=== PATIENT | female | born 1965 | race Caucasian/White ===

== ENCOUNTER → 2016-11-27 | Outpatient (CLI) | payer OTHER ==
--- NOTE | 2016-11-27 17:49 | DIAGNOSTIC IMAGING REPORT ---
PROCEDURE: XR ABDOMEN 1 VIEW INDICATION: KIDNEY STONES TECHNIQUE: AP supine and upright views. COMPARISON: Abdominal CT 10/27/2014 FINDINGS: Bowel pattern is normal. Soft tissues and osseous structures are normal. 3 cm calcified gallstone that was present on the abdominal CT 04/2015 IMPRESSION: 1. 3 cm gallstone
== END ==
LOC: XR SRH 17:02
DX: K80.80 Other cholelithiasis without obstruction (principal)

== ENCOUNTER 2016-11-29 19:51 | Emergency (ER) | payer OTHER ==
--- NOTE | 2016-11-29 21:54 | ED ORDER SUMMARY ---
..... Patient: SADIE ROMERO OrderSheet [facility] VisitID: [id number] [address] [address] 50y, F Registration Date/Time: 11/29/2016 ORDER SHEET Weight: 99.2 kg (stated) Allergies: Amoxicillin GENERAL ORDERS: CBC w Diff Urgent (20:17 11/29/2016 EKoroleva P.A.-C) (Ack 20:19 CHagerty ER Catalog Specialist) (20:39 DDean R.N.) CMP Urgent (20:17 11/29/2016 EKoroleva P.A.-C) (Ack 20:19 CHagerty ER Catalog Specialist) (20:39 DDean R.N.) UA-Culture if indicated Urgent (20:17 11/29/2016 EKoroleva P.A.-C) (Ack 20:19 CHagerty ER Catalog Specialist) (20:25 ALawrence ER Tech1) Lipase Urgent (20:17 11/29/2016 EKoroleva P.A.-C) (Ack 20:19 CHagerty ER Catalog Specialist) (20:40 DDean R.N.) Amylase Urgent (20:17 11/29/2016 EKoroleva P.A.-C) (Ack 20:19 CHagerty ER Catalog Specialist) (20:40 DDean R.N.) PCT (Procalcitonin) Urgent (21:28 11/29/2016 EKoroleva P.A.-C) (21:33 CHagerty ER Catalog Specialist) MEDICATION ORDERS: IV FLUIDS: IV Saline Lock (20:17 11/29/2016 EKoroleva P.A.-C) (20:39 DDean R.N.) ORDER SHEET NOTES: [Electronically signed by Lara Vences R.N. (22:00 11/29/2016)] [Electronically signed by Gissel Polanco PWilliamA.-C (23:07 11/29/2016)] [Electronically locked/signed by Lara Vences R.N. (22:00 11/29/2016)]
--- NOTE | 2016-11-29 21:54 | ED NURSING NOTES ---
Clinical Report - Nurses [facility] [address] [place] [address] 11/29/2016 19:52 Patient: SADIE ROMERO TRIAGE Triage time 1999. Acuity: LEVEL 3. Chief Complaint: PAINFUL URINATION and (Pt has frequent UTI's and has a kidney stone dx last week at [facility]. pt states that she finished antibiotics last week, and it is getting worse again). --20:11 Lara Vences R.N. 20:00 11/29/16. BP: 163/79. HR: 81. RR: 18. O2 saturation: 98%. Temp: 98.1 F. Pain level now: 01/11. --20:11 Lara Vences R.N. Weight: 99.2 kg stated. Height/Length: 61 inches Per Patient. BMI: 41.3. --20:08 Lara Vences R.N. Medications Just finished antibiotic last wek for UTI. --20:07 Lara Vences R.N. naturopathic med for menopause . --20:11 Lara Vences R.N. Allergies Amoxicillin. --20:06 Lara Vences R.N. History Arrived by private vehicle. Historian: patient. Accompanied by friend. Primary physician (faiza). The patient has had abdominal pain (feeling bloating/pain). ( also states she has 1 large kidney stone). SOCIAL HX: Former smoker. No alcohol use or drug use. --20:11 Lara Vences R.N. PROBLEMS: Pyelonephritis. Gallbladder Disease. Vulvovaginitis. Pelvic Inflammatory Disease. STD - Sexually Transmitted Disease. Vaginal Discharge. UTI - Urinary Tract Infection. Hypertension. --20:04 Lara Vences R.N. Interventions ID band on patient. To treatment room. --20:11 Lara Vences R.N. PHYSICAL ASSESSMENT 20:00. Patient gowned. GENERAL / NEURO / PSYCH: Alert. Oriented X 4. Appears anxious. RESPIRATORY: Respirations not labored. CVS: Capillary refill less than 2 seconds. GI / : Abdominal distention. SKIN: Skin is warm and dry. --20:11 Lara Vences R.N. NURSING PROGRESS NOTES 20:00. Patient gowned. Head of bed elevated. Reassurance given. Patient identifiers checked. Call light placed in reach. Side rails up. Bed placed in lowest position. Patient ready for evaluation- chart flagged. --20:10 Lara Vences R.N. 20:12 11/29/16. Patient ID band checked for patient name and birthdate. Clean catch urine collected with return of yellow-colored clear urine; sample sent to lab for urinalysis and culture. Specimen labeled in the presence of the patient. --20:12 Lara Vences R.N. 20:25 11/29/2016 Site #1 started via IV in the right hand with an 24g angiocath, with aseptic technique and good blood return; one attempt. Blood drawn: rainbow set. Labeled in the presence of the patient and sent to the lab. Saline lock flushed with 10 mL saline. --20:39 Lara Vences R.N. 20:30. ( Saline lock started, blood to lab. Pt ambulated to bathroom again.). --20:40 Lara Vences R.N. 21:00 11/29/16. BP: 158/70. HR: 80. RR: 18. O2 saturation: 99%. Temp: deferred. Pain level now: 7/10. Additional comments: Pt resting quietly, waiting for lab results . --21:14 Lara Vences R.N. 21:50 11/29/2016 Site #1 removed upon discharge. Bandaid applied. --21:59 Lara Vences R.N. 21:50 11/29/2016 IV Saline Lock Drip IV Discontinued: upon discharge. Total amount infused: 0 mL. IV patency established. IV site checked: no pain, redness, or swelling. IV flushed thoroughly. --22:00 Lara Vneces R.N. DISPOSITION / DISCHARGE 22:00. Condition at departure: stable. No learning barriers present. Discharge instructions provided and reviewed with the patient and spouse. Reviewed medication(s) (vicodin, pepcid). Patient and spouse verbalized understanding. Written instructions provided in [place]. The patient was discharged home and accompanied by spouse. She left the Emergency Department ambulatory and via private vehicle. Spouse driving. --21:59 Lara Vences R.N. 21:58 11/29/16. BP: 160/80. HR: 84. RR: 18. O2 saturation: 99%. Temp: deferred. Pain level now: 01/11. --21:59 Lara Vences R.N. Locked/Released at 11/29/2016 22:00 by Lara Vences R.N.
--- NOTE | 2016-11-29 21:54 | ED CLINICAL REPORT ---
Clinical Report - Physicians/Mid Levels [facility] [address] [place] [address] 11/29/2016 19:52 [id number] Time Seen: 20:22 Nov 29 2016. Arrived- By private vehicle. Historian- patient. HISTORY OF PRESENT ILLNESS Chief Complaint: FLANK PAIN. It is described as located in the right flank, the right abdomen and left abdomen and the left flank and in the periumbilical area. 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 The patient has had nausea. No loss of appetite, vomiting or diarrhea. (patient reports over the last few weeks has had off-and-on bilateral flank pain. SHe was recently seen at [facility], and diagnosed with a bladder infection, finishing antibiotics 4 days previously. Patient believes she has a kidney stone, is awaiting for referral. Denies fevers. Denies any emesis or diarrhea.). REVIEW OF SYSTEMS No constipation, difficulty with urination, pain with urination, fever or chest pain. No difficulty breathing, cough or chills. All systems otherwise negative, except as recorded above. PAST HISTORY Problems: Pyelonephritis. Gallbladder Disease. Vulvovaginitis. Pelvic Inflammatory Disease. STD - Sexually Transmitted Disease. Vaginal Discharge. UTI - Urinary Tract Infection. LNMP - Last Normal Menstrual Period. Hypertension. Tendon Laceration. Laceration. Tetanus Status. Medications: naturopathic med for menopause . Just finished antibiotic last wek for UTI. Allergies: Amoxicillin. SOCIAL HISTORY Former smoker. No alcohol use or drug use. ADDITIONAL NOTES The nursing notes have been reviewed. PHYSICAL EXAM Vital Signs: 11/29/2016 20:00 BP: 163/79. HR: 81. RR: 18. O2 saturation: 98%. Temp: 98.1 F. Pain level now: 7/10. Appearance: Alert. No apparent distress. Does not appear to be anxious. ENT: Nose normal. Pharynx normal. Neck: Normal inspection. CVS: Normal heart rate and rhythm. Heart sounds normal. Respiratory: No respiratory distress. Breath sounds normal. No decreased air movement. Abdomen: Soft. Moderate tenderness. No organomegaly. No mass. No rebound tenderness, distention, mass present, femoral pulse deficit or guarding. The bowel sounds are not abnormal. Back: Normal inspection. Skin: Skin cool. Normal skin color. Neuro: Oriented X 3. LABS, X-RAYS, AND EKG Laboratory Tests: UA-Culture if indicated: (CONY: 11/29/2016 20:03) ( [facility] [place] 21:02[place] Final results Test Result Flag Units (Reference) URINE COLOR STRAW URINE APPEARANCE CLEAR URINE GLUCOSE NEGATIVE (NEGATIVE) URINE BILIRUBIN NEGATIVE (NEGATIVE) URINE KETONE NEGATIVE (NEGATIVE) URINE SPECIFIC GRAVITY <= 1.005 L (1.010-1.030) URINE PH 6.5 (5.0-8.0) URINE PROTEIN NEGATIVE (NEGATIVE) URINE UROBILINOGEN 0.2 EU/dL (0.2-1.0) URINE NITRITE NEGATIVE (NEGATIVE) URINE BLOOD NEGATIVE (NEGATIVE) URINE LEUK ESTERASE NEGATIVE (NEGATIVE) URINE RBC NONE SEEN rbc/hpf (0-1) URINE WBC 0-1 wbc/hpf (0-1) URINE EPITHELIAL CELLS 0-1 EPI/hpf (0-5) URINE BACTERIA NONE SEEN (NONE SEEN) URINE COMMENT CULT NOT INDICATED URINE CULTURES ARE SET-UP BASED ON THE FOLLOWING CRITERIA:POSITIVE NITRITEPOSITIVE LEUKOCYTE ESTERASEGREATER THAN 10 WHITE BLOOD CELLSMODERATE (2+) OR GREATER BACTERIA CBC w Diff: (CONY: 11/29/2016 20:25) ( [facility] [place]2016 20:49) Final results Test Result Flag Units (Reference) WHITE BLOOD COUNT 8.3 K/uL (4.5-11.5) RED BLOOD COUNT 4.39 M/uL (4.00-5.20) HEMOGLOBIN 13.2 gm/dL (12.0-16.0) HEMATOCRIT 38.0 % (36.0-46.0) MEAN CELL VOLUME 87 fL (80-100) MEAN CORPUSCULAR HGB 30 pg (26-34) MEAN CORPUSCULAR HGB CONC 35 g/dL (31-37) RED CELL DISTRIBUTION WIDTH 12.2 % (11.6-14.8) PLATELET COUNT 259 K/uL (150-400) NEUTROPHIL % 65.4 % (50-75) LYMPH % 22.4 L % (25-40) MONO % 8.5 % (3-14) EOSINOPHIL % 3.2 % (0-4) BASOPHIL % 0.5 % (0-2) [id number]: (CONY: 11/29/2016 20:25) ( MsgRcvd 11/29/2016 22:03) Final results Test Result Flag Units (Reference) PROCALCITONIN <0.5 ng/mL (0-0.5) PCT Concentration: Interpretation : Risk/option for action PCT <=0.5 ng/mL : Systemic : Low risk forinfection(sepsis): progression to severeis not likely. : systemic infection.Local bacterial : CAUTION-PCT levelsinfection is : below 0.5 ng/mL do notpossible. : exclude an infection,because localizedinfections (withoutsystemic signs) may beassociated with suchlow levels. If PCT ismeasured very earlyafter a bacterialchallenge (usually <6hours), these valuesmay still be low. Inthis case PCT shouldbe re-assessed 6-24hours later. PCT >0.5 and : Systemic infection: Moderate risk for<= 2 ng/mL : (sepsis) is : progression to severepossible, but : systemic infection.other conditions : The patient should beare known to : closely monitoredelevate PCT. : both clinically andby re-assessing PCTwithin 6-24 hours. PCT > 2 ng/mL : Systemic infection: High risk for(sepsis) is likely: progression to severeunless other : systemic infection.causes are known. : PCT >= 10 ng/mL : Important systemic: High likelihood ofinflammatory : severe sepsis orresponse, almost : septic shock.exclusively due to:severe bacterial :sepsis or septic :shock. : CMP: (CONY: 11/29/2016 20:25) ( MsgRcvd 11/29/2016 21:07) Final results Test Result Flag Units (Reference) GLUCOSE 126 H mg/dL (70-110) BUN 7 mg/dL (7-18) CREATININE 0.7 mg/dL (0.6-1.3) Estimated GFR >60 mL/min Estimated GFR- >60 mL/min Note: Persistent reduction over 3 months in eGFR<60 mL/min/1.73 m2 defines CKD. Patients with eGFR values>=60 mL/min/1.73 m2 may also have CKD if evidence ofpersistent proteinuria. Additional information may be foundat www.kidney.org. SODIUM 133 L mmol/L (136-145) POTASSIUM 3.6 mmol/L (3.5-5.1) CHLORIDE 96 L mmol/L (98-107) CARBON DIOXIDE 27 mmol/L (21-32) CALCIUM 8.8 mg/dL (8.5-10.1) TOTAL PROTEIN 7.5 g/dL (6.4-8.2) ALBUMIN 3.5 g/dL (3.3-5.0) BILIRUBIN, TOTAL 0.5 mg/dL (0.0-1.0) ALKALINE PHOSPHATASE 86 U/L (46-116) AST (SGOT) 24 U/L (15-37) ALT (SGPT) 53 U/L (12-78) LIPASE 136 U/L (73-393) AMYLASE 37 U/L (25-115) . PROGRESS AND PROCEDURES Course of Care: Pre- hypertension/Hypertension: I discussed with the patient that they may have pre-hypertension or Hypertension based on a blood pressure reading in the emergency department. I have recommended to the patient that they call the primary care provider listed on their discharge instructions or their own within a week to arrange follow up for further evaluation of possible pre-hypertension or Hypertension. Abd: During the time in the ED, the following DDX were considered: acute surgical abdomen, hemodynamic or metabolic instability, dehydration, gastroenteritis-viral, food borne, or bacterial, food intolerance, irritable or inflammatory bowel, infection, sepsis. Pre- hypertension/Hypertension: I discussed with the patient that they may have pre-hypertension or Hypertension based on a blood pressure reading in the emergency department. I have recommended to the patient that they call the primary care provider listed on their discharge instructions or their own within a week to arrange follow up for further evaluation of possible pre-hypertension or Hypertension. Abd: During the time in the ED, the following DDX were considered: acute surgical abdomen, hemodynamic or metabolic instability, dehydration, gastroenteritis-viral, food borne, or bacterial, food intolerance, irritable or inflammatory bowel, infection, sepsis. 11/29/2016 21:58 BP: 160/80. HR: 84. RR: 18. O2 saturation: 99%. Pain level now: 7/10. Patient is stable. Symptoms better. Patient/family counseled. Disposition: Discharged. CLINICAL IMPRESSION Acute generalized and epigastric abdominal pain of unknown cause. INSTRUCTIONS Drink plenty of fluids. Prescription Medications: Hydrocodone/APAP 5mg / 325mg: take 1 orally every 6 hours as needed for pain. Dispense ten (10). No refill. Pepcid 20 mg: take 1 orally every 12 hours for 5 days. Dispense ten (10). No refills. Substitution is permissible. Follow-up: Follow up with your doctor in three days. Understanding of the discharge instructions verbalized by patient. (Electronically signed by Gissel Polanco P.A.-C 11/29/2016 23:07)
--- NOTE | 2016-11-29 21:54 | ED CLINICAL REPORT ---
Clinical Report - Physicians/Mid Levels [facility] [address] [place] [address] 11/29/2016 19:52 [id number] Time Seen: 20:22 Nov 29 2016. Arrived- By private vehicle. Historian- patient. HISTORY OF PRESENT ILLNESS Chief Complaint: FLANK PAIN. It is described as located in the right flank, the right abdomen and left abdomen and the left flank and in the periumbilical area. 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 The patient has had nausea. No loss of appetite, vomiting or diarrhea. (patient reports over the last few weeks has had off-and-on bilateral flank pain. SHe was recently seen at [facility], and diagnosed with a bladder infection, finishing antibiotics 4 days previously. Patient believes she has a kidney stone, is awaiting for referral. Denies fevers. Denies any emesis or diarrhea.). REVIEW OF SYSTEMS No constipation, difficulty with urination, pain with urination, fever or chest pain. No difficulty breathing, cough or chills. All systems otherwise negative, except as recorded above. PAST HISTORY Problems: Pyelonephritis. Gallbladder Disease. Vulvovaginitis. Pelvic Inflammatory Disease. STD - Sexually Transmitted Disease. Vaginal Discharge. UTI - Urinary Tract Infection. LNMP - Last Normal Menstrual Period. Hypertension. Tendon Laceration. Laceration. Tetanus Status. Medications: naturopathic med for menopause . Just finished antibiotic last wek for UTI. Allergies: Amoxicillin. SOCIAL HISTORY Former smoker. No alcohol use or drug use. ADDITIONAL NOTES The nursing notes have been reviewed. PHYSICAL EXAM Vital Signs: 11/29/2016 20:00 BP: 163/79. HR: 81. RR: 18. O2 saturation: 98%. Temp: 98.1 F. Pain level now: 7/10. Appearance: Alert. No apparent distress. Does not appear to be anxious. ENT: Nose normal. Pharynx normal. Neck: Normal inspection. CVS: Normal heart rate and rhythm. Heart sounds normal. Respiratory: No respiratory distress. Breath sounds normal. No decreased air movement. Abdomen: Soft. Moderate tenderness. No organomegaly. No mass. No rebound tenderness, distention, mass present, femoral pulse deficit or guarding. The bowel sounds are not abnormal. Back: Normal inspection. Skin: Skin cool. Normal skin color. Neuro: Oriented X 3. LABS, X-RAYS, AND EKG Laboratory Tests: UA-Culture if indicated: (CONY: 11/29/2016 20:03) ( [facility] [place] [place] 21:02) Final results Test Result Flag Units (Reference) URINE COLOR STRAW URINE APPEARANCE CLEAR URINE GLUCOSE NEGATIVE (NEGATIVE) URINE BILIRUBIN NEGATIVE (NEGATIVE) URINE KETONE NEGATIVE (NEGATIVE) URINE SPECIFIC GRAVITY <= 1.005 L (1.010-1.030) URINE PH 6.5 (5.0-8.0) URINE PROTEIN NEGATIVE (NEGATIVE) URINE UROBILINOGEN 0.2 EU/dL (0.2-1.0) URINE NITRITE NEGATIVE (NEGATIVE) URINE BLOOD NEGATIVE (NEGATIVE) URINE LEUK ESTERASE NEGATIVE (NEGATIVE) URINE RBC NONE SEEN rbc/hpf (0-1) URINE WBC 0-1 wbc/hpf (0-1) URINE EPITHELIAL CELLS 0-1 EPI/hpf (0-5) URINE BACTERIA NONE SEEN (NONE SEEN) URINE COMMENT CULT NOT INDICATED URINE CULTURES ARE SET-UP BASED ON THE FOLLOWING CRITERIA:POSITIVE NITRITEPOSITIVE LEUKOCYTE ESTERASEGREATER THAN 10 WHITE BLOOD CELLSMODERATE (2+) OR GREATER BACTERIA CBC w Diff: (CONY: 11/29/2016 20:25) ( [facility] [place] 11/29/2016 20:49) Final results Test Result Flag Units (Reference) WHITE BLOOD COUNT 8.3 K/uL (4.5-11.5) RED BLOOD COUNT 4.39 M/uL (4.00-5.20) HEMOGLOBIN 13.2 gm/dL (12.0-16.0) HEMATOCRIT 38.0 % (36.0-46.0) MEAN CELL VOLUME 87 fL (80-100) MEAN CORPUSCULAR HGB 30 pg (26-34) MEAN CORPUSCULAR HGB CONC 35 g/dL (31-37) RED CELL DISTRIBUTION WIDTH 12.2 % (11.6-14.8) PLATELET COUNT 259 K/uL (150-400) NEUTROPHIL % 65.4 % (50-75) LYMPH % 22.4 L % (25-40) MONO % 8.5 % (3-14) EOSINOPHIL % 3.2 % (0-4) BASOPHIL % 0.5 % (0-2) [id number]: (CONY: 11/29/2016 20:25) ( MsgRcvd 11/29/2016 22:03) Final results Test Result Flag Units (Reference) PROCALCITONIN <0.5 ng/mL (0-0.5) PCT Concentration: Interpretation : Risk/option for action PCT <=0.5 ng/mL : Systemic : Low risk forinfection(sepsis): progression to severeis not likely. : systemic infection.Local bacterial : CAUTION-PCT levelsinfection is : below 0.5 ng/mL do notpossible. : exclude an infection,because localizedinfections (withoutsystemic signs) may beassociated with suchlow levels. If PCT ismeasured very earlyafter a bacterialchallenge (usually <6hours), these valuesmay still be low. Inthis case PCT shouldbe re-assessed 6-24hours later. PCT >0.5 and : Systemic infection: Moderate risk for<= 2 ng/mL : (sepsis) is : progression to severepossible, but : systemic infection.other conditions : The patient should beare known to : closely monitoredelevate PCT. : both clinically andby re-assessing PCTwithin 6-24 hours. PCT > 2 ng/mL : Systemic infection: High risk for(sepsis) is likely: progression to severeunless other : systemic infection.causes are known. : PCT >= 10 ng/mL : Important systemic: High likelihood ofinflammatory : severe sepsis orresponse, almost : septic shock.exclusively due to:severe bacterial :sepsis or septic :shock. : CMP: (CONY: 11/29/2016 20:25) ( MsgRcvd 11/29/2016 21:07) Final results Test Result Flag Units (Reference) GLUCOSE 126 H mg/dL (70-110) BUN 7 mg/dL (7-18) CREATININE 0.7 mg/dL (0.6-1.3) Estimated GFR >60 mL/min Estimated GFR- >60 mL/min Note: Persistent reduction over 3 months in eGFR<60 mL/min/1.73 m2 defines CKD. Patients with eGFR values>=60 mL/min/1.73 m2 may also have CKD if evidence ofpersistent proteinuria. Additional information may be foundat www.kidney.org. SODIUM 133 L mmol/L (136-145) POTASSIUM 3.6 mmol/L (3.5-5.1) CHLORIDE 96 L mmol/L (98-107) CARBON DIOXIDE 27 mmol/L (21-32) CALCIUM 8.8 mg/dL (8.5-10.1) TOTAL PROTEIN 7.5 g/dL (6.4-8.2) ALBUMIN 3.5 g/dL (3.3-5.0) BILIRUBIN, TOTAL 0.5 mg/dL (0.0-1.0) ALKALINE PHOSPHATASE 86 U/L (46-116) AST (SGOT) 24 U/L (15-37) ALT (SGPT) 53 U/L (12-78) LIPASE 136 U/L (73-393) AMYLASE 37 U/L (25-115) . PROGRESS AND PROCEDURES Course of Care: Pre- hypertension/Hypertension: I discussed with the patient that they may have pre-hypertension or Hypertension based on a blood pressure reading in the emergency department. I have recommended to the patient that they call the primary care provider listed on their discharge instructions or their own within a week to arrange follow up for further evaluation of possible pre-hypertension or Hypertension. Abd: During the time in the ED, the following DDX were considered: acute surgical abdomen, hemodynamic or metabolic instability, dehydration, gastroenteritis-viral, food borne, or bacterial, food intolerance, irritable or inflammatory bowel, infection, sepsis. Pre- hypertension/Hypertension: I discussed with the patient that they may have pre-hypertension or Hypertension based on a blood pressure reading in the emergency department. I have recommended to the patient that they call the primary care provider listed on their discharge instructions or their own within a week to arrange follow up for further evaluation of possible pre-hypertension or Hypertension. Abd: During the time in the ED, the following DDX were considered: acute surgical abdomen, hemodynamic or metabolic instability, dehydration, gastroenteritis-viral, food borne, or bacterial, food intolerance, irritable or inflammatory bowel, infection, sepsis. 11/29/2016 21:58 BP: 160/80. HR: 84. RR: 18. O2 saturation: 99%. Pain level now: 7/10. Patient is stable. Symptoms better. Patient/family counseled. Disposition: Discharged. CLINICAL IMPRESSION Acute generalized and epigastric abdominal pain of unknown cause. INSTRUCTIONS Drink plenty of fluids. Prescription Medications: Hydrocodone/APAP 5mg / 325mg: take 1 orally every 6 hours as needed for pain. Dispense ten (10). No refill. Pepcid 20 mg: take 1 orally every 12 hours for 5 days. Dispense ten (10). No refills. Substitution is permissible. Follow-up: Follow up with your doctor in three days. Understanding of the discharge instructions verbalized by patient. (Electronically signed by Gsisel Polanco P.A.-C 11/29/2016 23:07)
--- NOTE | 2016-11-29 21:54 | ED NURSING NOTES ---
Clinical Report - Nurses [facility] [address] [place] [address] 11/29/2016 19:52 Patient: SADIE ROMERO TRIAGE Triage time 1999. Acuity: LEVEL 3. Chief Complaint: PAINFUL URINATION and (Pt has frequent UTI's and has a kidney stone dx last week at [facility]. pt states that she finished antibiotics last week, and it is getting worse again). --20:11 Lara Vences R.N. 20:00 11/29/16. BP: 163/79. HR: 81. RR: 18. O2 saturation: 98%. Temp: 98.1 F. Pain level now: 01/11. --20:11 Lara Vences R.N. Weight: 99.2 kg stated. Height/Length: 61 inches Per Patient. BMI: 41.3. --20:08 Lara Vences R.N. Medications Just finished antibiotic last wek for UTI. --20:07 Lara Vences R.N. naturopathic med for menopause . --20:11 Lara Vences R.N. Allergies Amoxicillin. --20:06 Lara Vences R.N. History Arrived by private vehicle. Historian: patient. Accompanied by friend. Primary physician (faiza). The patient has had abdominal pain (feeling bloating/pain). ( also states she has 1 large kidney stone). SOCIAL HX: Former smoker. No alcohol use or drug use. --20:11 Lara Vences R.N. PROBLEMS: Pyelonephritis. Gallbladder Disease. Vulvovaginitis. Pelvic Inflammatory Disease. STD - Sexually Transmitted Disease. Vaginal Discharge. UTI - Urinary Tract Infection. Hypertension. --20:04 Lara Vences R.N. Interventions ID band on patient. To treatment room. --20:11 Lara Vences R.N. PHYSICAL ASSESSMENT 20:00. Patient gowned. GENERAL / NEURO / PSYCH: Alert. Oriented X 4. Appears anxious. RESPIRATORY: Respirations not labored. CVS: Capillary refill less than 2 seconds. GI / : Abdominal distention. SKIN: Skin is warm and dry. --20:11 Lara Vences R.N. NURSING PROGRESS NOTES 20:00. Patient gowned. Head of bed elevated. Reassurance given. Patient identifiers checked. Call light placed in reach. Side rails up. Bed placed in lowest position. Patient ready for evaluation- chart flagged. --20:10 Lara Vences R.N. 20:12 11/29/16. Patient ID band checked for patient name and birthdate. Clean catch urine collected with return of yellow-colored clear urine; sample sent to lab for urinalysis and culture. Specimen labeled in the presence of the patient. --20:12 Lara Vences R.N. 20:25 11/29/2016 Site #1 started via IV in the right hand with an 24g angiocath, with aseptic technique and good blood return; one attempt. Blood drawn: rainbow set. Labeled in the presence of the patient and sent to the lab. Saline lock flushed with 10 mL saline. --20:39 Lara Vences R.N. 20:30. ( Saline lock started, blood to lab. Pt ambulated to bathroom again.). --20:40 Lara Vences R.N. 21:00 11/29/16. BP: 158/70. HR: 80. RR: 18. O2 saturation: 99%. Temp: deferred. Pain level now: 7/10. Additional comments: Pt resting quietly, waiting for lab results . --21:14 Lara Vences R.N. 21:50 11/29/2016 Site #1 removed upon discharge. Bandaid applied. --21:59 Lara Vences R.N. 21:50 11/29/2016 IV Saline Lock Drip IV Discontinued: upon discharge. Total amount infused: 0 mL. IV patency established. IV site checked: no pain, redness, or swelling. IV flushed thoroughly. --22:00 Lara Vences R.N. DISPOSITION / DISCHARGE 22:00. Condition at departure: stable. No learning barriers present. Discharge instructions provided and reviewed with the patient and spouse. Reviewed medication(s) (vicodin, pepcid). Patient and spouse verbalized understanding. Written instructions provided in Ivorian. The patient was discharged home and accompanied by spouse. She left the Emergency Department ambulatory and via private vehicle. Spouse driving. --21:59 Lara Vences R.N. 21:58 11/29/16. BP: 160/80. HR: 84. RR: 18. O2 saturation: 99%. Temp: deferred. Pain level now: 01/11. --21:59 Lara Vences R.N. Locked/Released at 11/29/2016 22:00 by Lara Vences R.N.
--- NOTE | 2016-11-29 21:54 | ED ORDER SUMMARY ---
..... Patient: SADIE ROMERO OrderSheet [facility] VisitID: [id number] [address] [place] [address] 50y, F Registration Date/Time: 11/29/2016 ORDER SHEET Weight: 99.2 kg (stated) Allergies: Amoxicillin GENERAL ORDERS: CBC w Diff Urgent (20:17 11/29/2016 EKoroleva P.A.-C) (Ack 20:19 CHagerty ER Telephonic Rn) (20:39 DDean R.N.) CMP Urgent (20:17 11/29/2016 EKoroleva P.A.-C) (Ack 20:19 CHagerty ER Telephonic Rn) (20:39 DDean R.N.) UA-Culture if indicated Urgent (20:17 11/29/2016 EKoroleva P.A.-C) (Ack 20:19 CHagerty ER Telephonic Rn) (20:25 ALawrence ER Tech1) Lipase Urgent (20:17 11/29/2016 EKoroleva P.A.-C) (Ack 20:19 CHagerty ER Telephonic Rn) (20:40 DDean R.N.) Amylase Urgent (20:17 11/29/2016 EKoroleva P.A.-C) (Ack 20:19 CHagerty ER Telephonic Rn) (20:40 DDean R.N.) PCT (Procalcitonin) Urgent (21:28 11/29/2016 EKoroleva P.A.-C) (21:33 CHagerty ER Telephonic Rn) MEDICATION ORDERS: IV FLUIDS: IV Saline Lock (20:17 11/29/2016 EKoroleva P.A.-C) (20:39 DDean R.N.) ORDER SHEET NOTES: [Electronically signed by Lara Vences R.N. (22:00 11/29/2016)] [Electronically signed by Gissel Polanco PWilliamA.-C (23:07 11/29/2016)] [Electronically locked/signed by Lara Vences R.N. (22:00 11/29/2016)]
--- NOTE | 2016-11-29 23:07 | ED MAR SUMMARY ---
..... Medication Administration Record [facility] [address] [place], [place] [id number] Patient: SADIE ROMERO Visit ID: [id number] 50y, F Weight: 99.2 kg Height/Length: 61 in BMI: 41.3 ALLERGIES: Amoxicillin
--- NOTE | 2016-11-29 23:07 | ED MED RECONCILIATION SUMMARY ---
Patient: SADIE ROMERO Medication Reconciliation Report [facility] VisitID: [id number] [address] [place] [address] 50y, F Registration Date/Time: 11/29/2016 Weight: 99.2 kg Height/Length: 61 in. BMI: 41.3 ALLERGIES: Amoxicillin The patient's Home Medications are listed below: THE FOLLOWING MEDICATIONS NEED TO BE RECONCILED: Just finished antibiotic last wek for UTI naturopathic med for menopause The source(s) of the original Home Medication information: Not obtained. The following Medications were given to the patient in the Emergency Department: None. The following Medications were prescribed to the patient: Hydrocodone/APAP 5mg / 325mg: take 1 orally every 6 hours as needed for pain. Dispense ten (10). No refill. -- Gissel Polanco, P.A.-C Pepcid 20 mg: take 1 orally every 12 hours for 5 days. Dispense ten (10). No refills. Substitution is permissible. -- Gissel Polanco, P.A.-C
--- NOTE | 2016-11-29 23:07 | ED MAR SUMMARY ---
..... Medication Administration Record [facility] [address] [place], [place] [id number] Patient: SADIE ROMERO Visit ID: [id number] 50y, F Weight: 99.2 kg Height/Length: 61 in BMI: 41.3 ALLERGIES: Amoxicillin
--- NOTE | 2016-11-29 23:07 | ED DISCHARGE INSTRUCTIONS ---
Patient: SADIE ROMERO General Instructions [facility] VisitID: [id number] [place] [address] 50y, F Registration Date/Time: 11/29/2016 Acute generalized and epigastric abdominal pain of unknown cause. INSTRUCTIONS Drink plenty of fluids. Prescription Medications: Hydrocodone/APAP 5mg / 325mg: take 1 orally every 6 hours as needed for pain. Dispense ten (10). No refill. Pepcid 20 mg: take 1 orally every 12 hours for 5 days. Dispense ten (10). No refills. Substitution is permissible. Follow-up: Follow up with your doctor in three days. Understanding of the discharge instructions verbalized by patient. ADDITIONAL INFORMATION Abdominal Pain, Unknown Cause (Female) The exact cause of your abdominal (stomach) pain is not certain. This does not mean that this is something to worry about, or the right tests were not done. Everyone likes to know the exact cause of the problem, but sometimes with abdominal pain, there is no clear-cut cause, and this could be a good thing. The good news is that your symptoms can be treated, and you will feel better. Your condition does not seem serious now; however, sometimes the signs of a serious problem may take more time to appear. For this reason,it is important for you to watch for any new symptoms, problems,or worsening of your condition. Over the next few days, the abdominal pain may come and go, or be continuous. Other common symptoms can include nausea and vomiting. Sometimes it can be difficult to tell if you feel nauseous, you may just feel bad and not associate that feeling with nausea. Constipation, diarrhea, and a fever may go along with the pain. The pain may continue even if treated correctly over the following days. Depending on how things go, sometimes the cause can become clear and may require further or different treatment. Additional evaluations, medications, or tests may be needed. Home care Your health care provider may prescribe medications for pain, symptoms, or an infection. Follow the health care provider's instructions for taking these medications. General care Rest until your next exam. No strenuous activities. Try to find positions that ease discomfort. A small pillow placed on the abdomen may help relieve pain. Something warm on your abdomen (such as a heating pad) may help, but be careful not to burn yourself. Diet Do not force yourself to eat, especially if having cramps, vomiting, or diarrhea. Water is important so you do not get dehydrated. Soup may also be good. Sports drinks may also help, especially if they are not too acidic. Make sure you don't drink sugary drinks as this can make things worse. Take liquids in small amounts. Do not guzzle them. Caffeine sometimes makes the pain and cramping worse. Avoid dairy products if you have vomiting or diarrhea. Don't eat large amounts at a time. Wait a few minutes between bites. Eat a diet low in fiber (called a low-residue diet). Foods allowed include refined breads, white rice, fruit and vegetable juices without pulp, tender meats. These foods will pass more easily through the intestine. Avoid whole-grain foods, whole fruits and vegetables, meats, seeds and nuts, fried or fatty foods, dairy, alcohol and spicy foods until your symptoms go away. Follow-up care Follow up with your health care provider as instructed, or if your pain does not begin to improve in the next 24 hours. When to seek medical care Seek prompt medical care if any of the following occur: Pain gets worse or moves to the right lower abdomen New or worsening vomiting or diarrhea Swelling of the abdomen Unable to pass stool for more than three days Fever of 100.4F (38C) or higher, or as directed by your healthcare provider. Blood in vomit or bowel movements (dark red or black color) Jaundice (yellow color of eyes and skin) Weakness, dizziness Chest, arm, back, neck or jaw pain Unexpected vaginal bleeding or missed period Call 911 Call emergency services if any of the following occur: Trouble breathing Confusion Fainting or loss of consciousness Rapid heart rate Seizure Epigastric Pain (Uncertain Cause) Epigastric pain can be a sign of disease in the upper abdomen. Common causes include: Acid reflux (stomach acid flowing up into the esophagus) Gastritis (irritation of the stomach lining) Peptic Ulcer Disease Inflammation of the pancreas Gallstone Infection in the gallbladder Pain may be dull or burning. It may spread upward to the chest or to the back. There may be other symptoms such as belching, bloating, cramps or hunger pains. There may be weight loss or poor appetite, nausea or vomiting. Since the diagnosis of your pain is not certain yet, further tests will be needed. Sometimes the doctor will treat you for the most likely condition to see if there is improvement before doing further tests. Home Care: Unless told otherwise, you may try antacids (Mylanta or Maalox) help neutralize stomach acid. This may relieve your pain. Take 1-2 tablespoons or tablets one hour after meals and at bedtime. The liquid form coats the stomach better than the chewable tablets and is preferred. If Tagamet (cimetidine), Zantac (ranitidine), or Carafate (sucralfate) has also been prescribed, allow one hour between taking this medicine and taking the antacids. Avoid foods that irritate the stomach. Follow a light diet until you are feeling better. Avoid alcohol, caffeine, and tobacco. Talk to your doctor before taking any [id number] medicine that contains aspirin or an anti-inflammatory drug such as ibuprofen, Advil, Motrin, Naprosyn, or Aleve. Follow Up with your doctor or as advised if you do not improve over the next 48 hours. Get Prompt Medical Attention if any of the following occur: Stomach pain worsens or moves to the right lower part of the abdomen Chest pain appears, or if it worsens or spreads to the chest, back, neck, shoulder, or arm Frequent vomiting (cant keep down liquids) Blood in the stool or vomit (red or black color) Feeling weak or dizzy, fainting, or having trouble breathing Fever of 100.4F (38C) or higher, or as directed by your healthcare provider Abdominal swelling Symptoms With Uncertain Cause [Adult] Based on the exam and any tests that were performed today, the exact cause of your symptoms is not certain. While your condition does not seem serious, the signs of a serious problem may take more time to appear. Therefore, it is important for you to watch for any new symptoms or worsening of your condition.Follow up with your doctor or this facility, as directed.A repeat physical exam or additional testing at a later time may uncover a cause for your symptoms that is not evident today. Home Care: Resume your usual activities and diet when this feels comfortable to do so. Follow Up with your doctor, or as advised by our staff.Contact your doctor sooner if your symptoms do not begin to improve in the next few days. [NOTE: If you had an x-ray, CT scan, ultrasound, or ECG (electrocardiogram), it will be reviewed by a specialist. You will be notified of any new findings that may affect your care.] Get Prompt Medical Attention if any of the following occur: Current symptoms get worse New symptoms appear [place] Diet A bland diet is used for patients with an upset stomach. It consists of foods that are mild and easy to digest. It is better to eat small frequent meals rather than three large meals a day. BEVERAGES OK: Fruit juices, non-caffeinated teas and coffee, non-carbonated [place] AVOID: Carbonated beverage, caffeinated tea and coffee, all alcoholic beverages BREAD OK: Refined white, wheat or rye bread, [place] or soda crackers, [place] toast, plain rolls, bagels AVOID: Whole-grain bread CEREAL OK: Refined cereals: cooked or ready to eat AVOID: Whole grain cereals and granola, or those containing bran, seeds or nuts DESSERTS OK: Peanut butter and all others except those to "avoid" AVOID: Chocolate, cocoa, coconut, popcorn, nuts, seeds, jam, marmalade FRUITS OK: Canned, cooked, frozen or fresh fruits without seeds or tough skin AVOID: Olives, skin and seeds of fruit MEATS OK: All fresh or preserved meat, fish and fowl AVOID: Any that are prepared with those spices to "avoid" CHEESE & EGGS OK: Eggs, cottage cheese, cream cheese, other cheeses AVOID: All cheeses made with those spices to "avoid" POTATOES & PASTA OK: Potato, rice, macaroni, noodles, spaghetti AVOID: None SOUPS OK: All soups without heavy seasoning AVOID: Soups made with those spices to "avoid" VEGETABLES OK: Canned, cooked, fresh or frozen mildly flavored vegetables without seeds, skins or coarse fiber AVOID: Vegetables prepared with those spices to "avoid"; skin and seeds of vegetables and those with coarse fiber SPICES OK: Salt, lemon and standing [place] juice, vinegar, all extracts, kb, cinnamon, thyme, mace, allspice, paprika AVOID: [place] powder, cloves, pepper, seed spices, garlic, gravy pickles, highly seasoned salad dressings Clear Liquid Diet Clear liquids are any liquid that you can see through as well as those that are very easy to digest. This is used while the body is recovering from irritation or infection of the stomach or intestinal tract. It may also be used before special procedures or surgery. This diet is to be used no more than three days. You may include the following items. Adults Adults should drink a total of 23 quarts of liquid per day. It may be easier to drink small frequent servings rather than a few large ones. Liquids can include: Fruit juices.Strained orange juice or lemonade (no pulp), apple, grape and cranberry juice, clear fruit drinks, sports drinks Beverages.Sport drinks, sodas, mineral water (plain or flavored), tea, black coffee, liquid gelatin (add twice the recommended amount of water) Soups.Clear broth, consomm, bouillon Desserts.Plain gelatin, popsicles, fruit juice bars Children Over 2 years old The following liquids are acceptable for children over age 2: Fruit juices.Strained orange juice or lemonade (no pulp), apple, grape and cranberry juice, clear fruit drinks Beverages. Sports drinks, sodas, mineral water (plain or flavored), tea, liquid gelatin (add twice the recommended amount of water) Soups. Clear broth, consomm, bouillon Desserts. Plain gelatin, popsicles, fruit juice bars Children under 2 years old Oral rehydration fluids such are available at drug stores and most grocery stores without a prescription. Hydrocodone Bitartrate, Acetaminophen Oral tablet What is this medicine? ACETAMINOPHEN; HYDROCODONE (a set a JACOB avtar fen; chloe droe KOE done) is a pain reliever. It is used to treat mild to moderate pain. How should I use this medicine? Take this medicine by mouth. Swallow it with a full glass of water. Follow the directions on the prescription label. If the medicine upsets your stomach, take the medicine with food or milk. Do not take more than you are told to take. Talk to your marine electrician regarding the use of this medicine in children. This medicine is not approved for use in children. What side effects may I notice from receiving this medicine? Side effects that you should report to your doctor or health resident care associate as soon as possible: allergic reactions like skin rash, itching or hives, swelling of the face, lips, or tongue breathing problems confusion feeling faint or lightheaded, falls stomach pain yellowing of the eyes or skin Side effects that usually do not require medical attention (report to your doctor or health resident care associate if they continue or are bothersome): nausea, vomiting stomach upset What may interact with this medicine? alcohol antihistamines isoniazid medicines for depression, anxiety, or psychotic disturbances medicines for sleep muscle relaxants naltrexone narcotic medicines (opiates) for pain phenobarbital ritonavir tramadol What if I miss a dose? If you miss a dose, take it as soon as you can. If it is almost time for your next dose, take only that dose. Do not take double or extra doses. Where should I keep my medicine? Keep out of the reach of children. This medicine can be abused. Keep your medicine in a safe place to protect it from theft. Do not share this medicine with anyone. Selling or giving away this medicine is dangerous and against the law. Store at room temperature between 15 and 30 degrees C (59 and 86 degrees F). Protect from light. Keep container tightly closed. Throw away any unused medicine after the expiration date. Discard unused medicine and used packaging carefully. Pets and children can be harmed if they find used or lost packages. What should I tell my health care provider before I take this medicine? They need to know if you have any of these conditions: brain tumor Crohn's disease, inflammatory bowel disease, or ulcerative colitis drink more than 3 alcohol-containing drinks per day drug abuse or addiction head injury heart or circulation problems kidney disease or problems going to the bathroom liver disease lung disease, asthma, or breathing problems an unusual or allergic reaction to acetaminophen, hydrocodone, other opioid analgesics, other medicines, foods, dyes, or preservatives or trying to get breast-feeding What should I watch for while using this medicine? Tell your doctor or health resident care associate if your pain does not go away, if it gets worse, or if you have new or a different type of pain. You may develop tolerance to the medicine. Tolerance means that you will need a higher dose of the medicine for pain relief. Tolerance is normal and is expected if you take the medicine for a long time. Do not suddenly stop taking your medicine because you may develop a severe reaction. Your body becomes used to the medicine. This does NOT mean you are addicted. Addiction is a behavior related to getting and using a drug for a non-medical reason. If you have pain, you have a medical reason to take pain medicine. Your doctor will tell you how much medicine to take. If your doctor wants you to stop the medicine, the dose will be slowly lowered over time to avoid any side effects. You may get drowsy or dizzy when you first start taking the medicine or change doses. Do not drive, use machinery, or do anything that may be dangerous until you know how the medicine affects you. Stand or sit up slowly. There are different types of narcotic medicines (opiates) for pain. If you take more than one type at the same time, you may have more side effects. Give your health care provider a list of all medicines you use. Your doctor will tell you how much medicine to take. Do not take more medicine than directed. Call emergency for help if you have problems breathing. The medicine will cause constipation. Try to have a bowel movement at least every 2 to 3 days. If you do not have a bowel movement for 3 days, call your doctor or health resident care associate. Too much acetaminophen can be very dangerous. Do not take Tylenol (acetaminophen) or medicines that contain acetaminophen with this medicine. Many non-prescription medicines contain acetaminophen. Always read the labels carefully. Famotidine Oral tablet What is this medicine? FAMOTIDINE (marcia givens) is a type of antihistamine that blocks the release of stomach acid. It is used to treat stomach or intestinal ulcers. It can also relieve heartburn from acid reflux. How should I use this medicine? Take this medicine by mouth with a glass of water. Follow the directions on the prescription label. If you only take this medicine once a day, take it at bedtime. Take your doses at regular intervals. Do not take your medicine more often than directed. Talk to your marine electrician regarding the use of this medicine in children. Special care may be needed. What side effects may I notice from receiving this medicine? Side effects that you should report to your doctor or health resident care associate as soon as possible: agitation, nervousness confusion hallucinations skin rash, itching Side effects that usually do not require medical attention (report to your doctor or health resident care associate if they continue or are bothersome): constipation diarrhea dizziness headache What may interact with this medicine? delavirdine itraconazole ketoconazole What if I miss a dose? If you miss a dose, take it as soon as you can. If it is almost time for your next dose, take only that dose. Do not take double or extra doses. Where should I keep my medicine? Keep out of the reach of children. Store at room temperature between 15 and 30 degrees C (59 and 86 degrees F). Do not freeze. Throw away any unused medicine after the expiration date. What should I tell my health care provider before I take this medicine? They need to know if you have any of these conditions: kidney or liver disease trouble swallowing an unusual or allergic reaction to famotidine, other medicines, foods, dyes, or preservatives or trying to get breast-feeding What should I watch for while using this medicine? Tell your doctor or health resident care associate if your condition does not start to get better or if it gets worse. Finish the full course of tablets prescribed, even if you feel better. Do not take with aspirin, ibuprofen or other antiinflammatory medicines. These can make your condition worse. Do not smoke cigarettes or drink alcohol. These cause irritation in your stomach and can increase the time it will take for ulcers to heal. If you get black, tarry stools or vomit up what looks like coffee grounds, call your doctor or health resident care associate at once. You may have a bleeding ulcer. You have been given the following additional information: Abdominal Pain, Unknown Cause, (Female) Epigastric Pain (Uncertain Cause) Symptoms With Uncertain Cause Diet, [place] (Adult) Diet, Clear Liquid Hydrocodone Bitartrate, Acetaminophen Oral tablet Famotidine Oral tablet (Electronically signed by Gissel Polanco P.A.-C 11/29/2016 23:07)
--- NOTE | 2016-11-29 23:07 | ED MED RECONCILIATION SUMMARY ---
Patient: SADIE ROMERO Medication Reconciliation Report [facility] VisitID: [id number] [address] [place] [address] 50y, F Registration Date/Time: 11/29/2016 Weight: 99.2 kg Height/Length: 61 in. BMI: 41.3 ALLERGIES: Amoxicillin The patient's Home Medications are listed below: THE FOLLOWING MEDICATIONS NEED TO BE RECONCILED: Just finished antibiotic last wek for UTI naturopathic med for menopause The source(s) of the original Home Medication information: Not obtained. The following Medications were given to the patient in the Emergency Department: None. The following Medications were prescribed to the patient: Hydrocodone/APAP 5mg / 325mg: take 1 orally every 6 hours as needed for pain. Dispense ten (10). No refill. -- Gissel Polanco, P.A.-C Pepcid 20 mg: take 1 orally every 12 hours for 5 days. Dispense ten (10). No refills. Substitution is permissible. -- Gissel Polanco, P.A.-C
== END 2016-11-29 22:00 | disposition home or self-care (01) ==
LOC: ED SRH 19:51
DX: R10.84 Generalized abdominal pain (principal); R10.13 Epigastric pain; I10 Essential (primary) hypertension; Z87.891 Personal history of nicotine dependence; Z88.1 Allergy status to other antibiotic agents
CPT/HCPCS: 90004; 90100; 92235; 92530; 93004; 95059